=== PATIENT | male | born 1980 | race Caucasian/White ===

== ENCOUNTER 2016-07-09 14:11 | Observation (INO) | payer BC, OTHER ==
[2016-07-09] MEDS ORDERED: Aspirin 81 MG Tab.Chew PO ONE (14:28)
[2016-07-09] MEDS ORDERED: Sodium Chloride 0.9% 1,000 ML IV ONE (14:28)
[2016-07-09] MEDS ORDERED: Diltiazem 25 MG/5 ML SDV IVPUSH ONE (14:30)
[2016-07-09] MEDS ORDERED: Enoxaparin 150 MG/1 ML Syringe SUBCUT ONE (14:31)
[2016-07-09] MEDS ORDERED: Enoxaparin 100 MG/1 ML Syringe ONE (14:36)
[2016-07-09 15:04] LABS: CHLORIDE,CL 114 mmol/L (98-110); SODIUM,NA 144 mmol/L (136-146)
--- NOTE | 2016-07-09 15:05 | EDM.PDOC ---
ED HISTORY OF PRESENT ILLNESS - General Chief Complaint: Cardiovascular Problem Stated Complaint: CHEST ISSUES Time Seen by Provider: 07/09/16 14:25 Source of Information: Reports: Patient, Family History Limitations: Reports: No limitations - History of Present Illness INITIAL COMMENTS - FREE TEXT/NARRATIVE: HISTORY AND PHYSICAL: History of present illness: [Patient comes to the emergency room complaining of heart palpitations. His symptoms began on July 07 with an occasional sensation of his heart thumping irregularly in his chest. This continued through the day yesterday. Today, he woke up feeling fatigued and weak and occasionally dizzy. Has felt some shortness of breath and worsening sensation of palpitations in his chest today. Over the past several months he's had some swelling over his shins. Had a PE June 2015 following a knee surgery. Took Xarelto for just less than one year. 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 He has no other complaints or concerns today.] Review of systems: As per history of present illness and below otherwise all systems reviewed and negative. Past medical history: As per history of present illness and as reviewed below otherwise noncontributory. Surgical history: As per history of present illness and as reviewed below otherwise noncontributory. Social history: No reported history of drug or alcohol abuse. Family history: As per history of present illness and as reviewed below otherwise noncontributory. Physical exam: HEENT: Atraumatic, normocephalic. negative for conjunctival pallor or scleral icterus. mucous membranes moist, throat clear. neck supple, nontender, no lymphadenopathy. Lungs: Clear to auscultation, breath sounds equal bilaterally, chest nontender. Heart: S1S2, no S3-S4. Heart is irregularly irregular. . Abdomen: Obese Soft, nondistended, nontender. Negative for masses or hepatosplenomegaly. Pelvis: Stable nontender. Genitourinary: Deferred. Rectal: Deferred. Extremities: Atraumatic, negative for cords or calf pain. No cyanosis or edema. Neurovascular unremarkable. Neuro: Awake, alert, oriented. Motor and sensory unremarkable throughout. Exam nonfocal. Diagnostics: [CBC, CMP, d-dimer, troponin, EKG, chest x-ray, BNP, INR/PT/PTT, UA] Therapeutics: [Lovenox 170 mg subcutaneous, Cardizem 25 mg IV, aspirin 324 mg by mouth] Impression: [New-onset atrial fibrillation] Plan: [Patient's EKG shows atrial fibrillation. This is a new diagnosis for him. His rate is controlled nicely with one dose of Cardizem 25 mg. Discussed case with Dr. Burrell, hospitalist, who agrees to accept patient for observation with telemetry. The patient is notified and is in agreement with today's plan. All questions are answered and concerns are addressed. Definitive disposition and diagnosis as appropriate pending reevaluation and review of above. - Related Data Allergies/ADRs: Allergies Allergy/AdvReac Type Severity Reaction Status Date / Time No Known Allergies Allergy Verified 07/09/16 14:18 Home Meds: Home Meds Losartan [Cozaar] 50 mg PO DAILY 07/09/16 [History] Past Medical History HEENT History: Reports: Sinusitis Cardiovascular History: Reports: Blood clots/VTE/DVT, High cholesterol, Hypertension Other Cardiovascular History: PE in Jun Respiratory History: Reports: Asthma Gastrointestinal History: Reports: None Genitourinary History: Reports: None Neurological History: Reports: None Psychiatric History: Reports: None Endocrine/Metabolic History: Reports: None Hematologic History: Reports: None Immunologic History: Reports: None Oncologic (Cancer) History: Reports: None Dermatologic History: Reports: None - Infectious Disease History Infectious Disease History: Reports: None - Past Surgical History Head Surgeries/Procedures: Reports: None HEENT Surgical History: Reports: Other (see below) Other HEENT Surgeries/Procedures: Sinus surgery Musculoskeletal Surgical History: Reports: Other (see below) Other Musculoskeletal Surgeries/Procedures:: left knee surgery 06/24/15 PCL repair Social & Family History - Family History Cardiac: Reports: Heart murmur, Hypertension, Other (see below) Other Cardiac Family History: irregular hr Oncologic: Reports: Breast - Tobacco Use Smoking Status *Q: Current Every Day Smoker Years of Tobacco use: 13 Packs/Tins Daily: 0.5 Second Hand Smoke Exposure: Yes - Caffeine Use Caffeine Use: Reports: None - Alcohol Use Days Per Week of Alcohol Use: 1 Number of Drinks Per Day: 1 Total Drinks Per Week: 1 - Recreational Drug Use Recreational Drug Use: No - Living Situation & Occupation Living situation: Reports: Occupation: employed ED ROS GENERAL - Review of Systems Review Of Systems: ROS reveals no pertinent complaints other than HPI. ED EXAM, GENERAL - Physical Exam Exam: See Below Course - Vital Signs Last Recorded V/S: Last Vital Signs Temp 97.8 F 07/09/16 15:33 Pulse 114 H 07/09/16 15:55 Resp 20 07/09/16 15:33 BP 120/80 07/09/16 15:55 Pulse Ox 94 L 07/09/16 15:33 - Orders/Labs/Meds Orders: Active Orders 24 hr Category Date Time Status Patient Status [ADT] Routine ADT 07/09/16 15:12 Active Antiembolic Devices [RC] Q4H Care 07/09/16 15:16 Active Oxygen Therapy [RC] PRN Care 07/09/16 15:12 Active Pulse Oximetry [RC] PRN Care 07/09/16 15:14 Active RT Aerosol Therapy [RC] ASDIRECTED Care 07/09/16 15:16 Active Up ad [place] [RC] ASDIRECTED Care 07/09/16 15:12 Active Vital Signs [RC] Q4H Care 07/09/16 15:12 Active 2 Gram Sodium Diet [DIET] Diet 07/09/16 Dinner Active Chest 2V [CR] Stat Exams 07/09/16 14:28 Taken Echo Comp wo Cont [US] Stat Exams 07/09/16 15:16 Ordered BASIC METABOLIC PANEL,BMP [CHEM] AM Lab 07/10/16 05:11 Ordered BASIC METABOLIC PANEL,BMP [CHEM] AM Lab 07/11/16 05:11 Ordered BASIC METABOLIC PANEL,BMP [CHEM] AM Lab 07/12/16 05:11 Ordered CBC WITH AUTO DIFF [HEME] AM Lab 07/10/16 05:11 Ordered CBC WITH AUTO DIFF [HEME] AM Lab 07/11/16 05:11 Ordered CBC WITH AUTO DIFF [HEME] AM Lab 07/12/16 05:11 Ordered UA W/MICROSCOPIC [URIN] Stat Lab 07/09/16 14:28 Uncollected Albuterol [Proventil Neb Soln] Med 07/09/16 15:12 Active 2.5 mg NEB Q2H PRN Diltiazem [Cardizem CD] Med 07/09/16 15:19 Active 120 mg PO DAILY Losartan [Cozaar] Med 07/10/16 09:00 Active 50 mg PO DAILY Sodium Chloride 0.9% [Saline Flush] Med 07/09/16 15:12 Active 10 ml FLUSH ASDIRECTED PRN Sodium Chloride 0.9% [Saline Flush] Med 07/09/16 15:12 Active 2.5 ml FLUSH ASDIRECTED PRN Peripheral IV Insertion Adult [OM.PC] Routine Oth 07/09/16 15:12 Ordered Sequential Compression Device [OM.PC] Per Unit Routine Oth 07/09/16 15:14 Ordered Resuscitation Status Routine Resus Stat 07/09/16 15:12 Ordered Medication Orders Albuterol (Proventil Neb Soln) 2.5 mg NEB Q2H PRN PRN Reason: Shortness Of Breath/wheezing Apixaban (Eliquis) 5 mg PO Q12H DARSHAN Diltiazem HCl (Cardizem Cd) 120 mg PO DAILY DARSHAN Last Admin: 07/09/16 15:55 Dose: 120 mg Losartan Potassium (Cozaar) 50 mg PO DAILY DARSHAN Nitroglycerin (Nitro-Bid 2%) 1 gm TOP Q6H PRN PRN Reason: Chest Pain Sodium Chloride (Saline Flush) 10 ml FLUSH ASDIRECTED PRN PRN Reason: Keep Vein Open Sodium Chloride (Saline Flush) 2.5 ml FLUSH ASDIRECTED PRN PRN Reason: Keep Vein Open Labs: Laboratory Tests 07/09/16 07/09/16 07/09/16 Range/Units 14:25 14:25 14:25 WBC 7.25 (4.0-11.0) K/uL RBC 4.95 (4.50-5.90) M/uL Hgb 15.2 (13.0-17.0) g/dL Hct 43.9 (38.0-50.0) % MCV 88.7 (80.0-98.0) fL MCH 30.7 (27.0-32.0) pg MCHC 34.6 (31.0-37.0) g/dL RDW Std Deviation 42.7 (28.0-62.0) fl RDW Coeff of Ap 13 (11.0-15.0) % Plt Count 221 (150-400) K/uL MPV 10.10 (7.40-12.00) fL Neut % (Auto) 59.9 (48.0-80.0) % Lymph % (Auto) 28.6 (16.0-40.0) % Marathon % (Auto) 8.3 (0.0-15.0) % Eos % (Auto) 2.8 (0.0-7.0) % Baso % (Auto) 0.4 (0.0-1.5) % Neut # 4.4 (1.4-5.7) K/uL Lymph # 2.1 (0.6-2.4) K/uL Marathon # 0.6 (0.0-0.8) K/uL Eos # 0.2 (0.0-0.7) K/uL Baso # 0.0 (0.0-0.1) K/uL Nucleated RBC % 0.0 /100WBC Nucleated RBCs # 0 K/uL INR 1.00 (0.86-1.11) D-Dimer, Quantitative < 0.19 (0.0-0.52) mg/LFEU Sodium 144 (136-146) mmol/L Potassium 3.9 (3.5-5.1) mmol/L Chloride 114 H (98-110) mmol/L Carbon Dioxide 20 L (21-31) mmol/L BUN 14 (6.0-23.0) mg/dL Creatinine 0.9 (0.6-1.5) mg/dL Est Cr Clr Drug Dosing TNP Estimated GFR (MDRD) > 60.0 ml/min Glucose 118 H (60-110) mg/dL Calcium 9.1 (8.8-10.8) mg/dL Total Bilirubin 0.5 (0.1-1.5) mg/dL AST 29 (5-40) IU/L ALT 37 (8-54) IU/L Alkaline Phosphatase 71 (40-150) Troponin I (0.0-0.29) NG/ML B-Natriuretic Peptide (<100) PG/ML Total Protein 7.1 (6.0-8.0) g/dL Albumin 4.2 (3.5-5.0) g/dL Globulin 2.9 (2.0-3.5) g/dL Albumin/Globulin Ratio 1.5 (1.3-2.8) TSH 3rd Generation 0.96 (0.47-5.0) uIU/mL 07/09/16 07/09/16 Range/Units 14:25 14:25 WBC (4.0-11.0) K/uL RBC (4.50-5.90) M/uL Hgb (13.0-17.0) g/dL Hct (38.0-50.0) % MCV (80.0-98.0) fL MCH (27.0-32.0) pg MCHC (31.0-37.0) g/dL RDW Std Deviation (28.0-62.0) fl RDW Coeff of Ap (11.0-15.0) % Plt Count (150-400) K/uL MPV (7.40-12.00) fL Neut % (Auto) (48.0-80.0) % Lymph % (Auto) (16.0-40.0) % Marathon % (Auto) (0.0-15.0) % Eos % (Auto) (0.0-7.0) % Baso % (Auto) (0.0-1.5) % Neut # (1.4-5.7) K/uL Lymph # (0.6-2.4) K/uL Marathon # (0.0-0.8) K/uL Eos # (0.0-0.7) K/uL Baso # (0.0-0.1) K/uL Nucleated RBC % /100WBC Nucleated RBCs # K/uL INR (0.86-1.11) D-Dimer, Quantitative (0.0-0.52) mg/LFEU Sodium (136-146) mmol/L Potassium (3.5-5.1) mmol/L Chloride (98-110) mmol/L Carbon Dioxide (21-31) mmol/L BUN (6.0-23.0) mg/dL Creatinine (0.6-1.5) mg/dL Est Cr Clr Drug Dosing Estimated GFR (MDRD) ml/min Glucose (60-110) mg/dL Calcium (8.8-10.8) mg/dL Total Bilirubin (0.1-1.5) mg/dL AST (5-40) IU/L ALT (8-54) IU/L Alkaline Phosphatase (40-150) Troponin I < 0.10 (0.0-0.29) NG/ML B-Natriuretic Peptide 25 (<100) PG/ML Total Protein (6.0-8.0) g/dL Albumin (3.5-5.0) g/dL Globulin (2.0-3.5) g/dL Albumin/Globulin Ratio (1.3-2.8) TSH 3rd Generation (0.47-5.0) uIU/mL Meds: Medications Generic Name Dose Route Start Last Admin Trade Name Hareshq PRN Reason Stop Dose Admin Albuterol 2.5 mg 07/09/16 15:12 Proventil Neb Soln NEB Q2H PRN Shortness Of Breath/wheezing Apixaban 5 mg 07/10/16 09:00 Eliquis PO Q12H DARSHAN Diltiazem HCl 120 mg 07/09/16 15:19 07/09/16 15:55 Cardizem Cd PO 120 mg DAILY DARSHAN Administration Losartan Potassium 50 mg 07/10/16 09:00 Cozaar PO DAILY DARSHAN Nitroglycerin 1 gm 07/09/16 17:16 Nitro-Bid 2% TOP Q6H PRN Chest Pain Sodium Chloride 10 ml 07/09/16 15:12 Saline Flush FLUSH ASDIRECTED PRN Keep Vein Open Sodium Chloride 2.5 ml 07/09/16 15:12 Saline Flush FLUSH ASDIRECTED PRN Keep Vein Open Discontinued Medications Generic Name Dose Route Start Last Admin Trade Name Hareshq PRN Reason Stop Dose Admin Aspirin 324 mg 07/09/16 14:28 07/09/16 14:38 Aspirin PO 07/09/16 14:29 324 mg ONETIME ONE Administration Diltiazem HCl 25 mg 07/09/16 14:30 07/09/16 14:39 Diltiazem IVPUSH 07/09/16 14:31 25 mg ONETIME ONE Administration Enoxaparin Sodium 170 mg 07/09/16 14:31 07/09/16 14:39 Lovenox SUBCUT 07/09/16 14:32 170 mg ONETIME ONE Administration Enoxaparin Sodium Confirm 07/09/16 14:36 07/09/16 15:27 Lovenox Administered 07/09/16 14:37 Not Given Dose 100 mg .ROUTE .STK-MED ONE Sodium Chloride 1,000 mls @ 999 mls/hr 07/09/16 14:28 07/09/16 14:39 Normal Saline IV 07/09/16 15:28 999 mls/hr .Bolus ONE Administration Departure - Departure Time of Disposition: 15:55 Disposition: Admitted As Inpatient 64 Clinical Impression: Atrial fibrillation Qualifiers: Atrial fibrillation type: unspecified Qualified Code(s): I48.91 - Unspecified atrial fibrillation - My Orders Last 24 Hours: My Active Orders 07/09/16 14:28 Chest 2V [CR] Stat UA W/MICROSCOPIC [URIN] Stat - Assessment/Plan Last 24 Hours: My Active Orders 07/09/16 14:28 Chest 2V [CR] Stat UA W/MICROSCOPIC [URIN] Stat
[2016-07-09] MEDS ORDERED: Sodium Chloride 0.9% 2.5 ML Syringe FLUSH PRN (15:12)
[2016-07-09] MEDS ORDERED: Albuterol 0.083% 2.5 MG/3 ML Neb Soln NEB PRN (15:12)
[2016-07-09] MEDS ORDERED: Sodium Chloride 0.9% 10 ML Syringe FLUSH PRN (15:12)
[2016-07-09] MEDS: Diltiazem 120 MG Cap.CD PO SCH (15:55)
[2016-07-09] MEDS ORDERED: Nitroglycerin 2% Oint 1 GM UD Packet TOP PRN (17:16)
--- NOTE | 2016-07-09 17:50 | PCM.SN ---
- Free Text/Narrative Note: [id number], HP
[2016-07-09] MEDS ORDERED: Diltiazem 25 MG/5 ML SDV IVPUSH PRN (19:40)
--- NOTE | 2016-07-09 23:51 | HP ---
DATE OF : 1980 PRIMARY CARE PHYSICIAN: None PCP HISTORY OF PRESENT ILLNESS: The patient is a 35-year-old man with past medical history of morbid obesity and pulmonary embolism one year ago, presented to the hospital because of chest tightness, palpitations that were intense, and he felt weird and sweating and lightheaded. His symptoms started around 6 a.m. in the morning and he came to the Emergency Department around 2 p.m. He also had chest tightness 5/10 in intensity. Never had a stress test or any cardiology workup. He reports similar symptoms before but they lasted only 4 or 6 sections, symptoms of palpitations. PAST MEDICAL HISTORY: One year ago, patient had knee surgery He developed pulmonary embolism and he was treated with anticoagulation, Xarelto for 1 year. Patient had asthma in childhood. He has hypertension. ALLERGIES: Patient does not have any known drug allergies. PAST SURGICAL HISTORY: He had eyes and sinus surgery when he was a child and left knee surgery. SOCIAL HISTORY: He smokes half pack per day for the past 13 years. No alcohol use. 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 REVIEW OF SYSTEMS: A 12-point review of systems is negative except as in the history of present illness. DIAGNOSTIC IMAGING: In the Emergency Department, patient had EKG which showed heart rate of 136, atrial fibrillation with ventricular rate between 79 and 169, left anterior vesicular block, low voltage extremity leads, abnormal R-wave progression, late transition, baseline wander in lead V1. QRS 95, QT 314, QTC 479. Chest x-ray was negative for acute disease. LABORATORY DATA: At admission, WBC 7.25, hemoglobin 15.2, hematocrit 43.9, and platelets 221. INR 1. D-dimer less than 0.19. Sodium 144, potassium 3.9, chloride 114, CO2 20, BUN 14, creatinine 0.9. GFR more than 60. Glucose 118, calcium 9.1. Total bilirubin 0.5, AST 29, ALT 27, alkaline phosphatase 71. Troponin at 2:30 p.m. was less than 0.1. BNP 25. Total protein 7.1. Albumin 4.2, globulin 2.9. TSH 0.96. PHYSICAL EXAMINATION: VITAL SIGNS: At admission, temperature 96.9, pulse 142, blood pressure 155/85, respiratory rate 18, pulse oximetry 97% on 2 L oxygen nasal cannula. HEENT: Head is atraumatic and normocephalic. Pupils are equal and reactive to light. NECK: Supple. No thyromegaly. No lymphadenopathy. HEART: S1 and S2. Irregular rhythm and rate, tachycardic. No murmurs. LUNGS: Clear to auscultation bilateral. ABDOMEN: Soft and nontender. Positive bowel sounds. EXTREMITIES: No edema. EMERGENCY DEPARTMENT COURSE: In the ER, patient received 25 mg of diltiazem, Cardizem IV push and his heart rate slowed down to 107. ASSESSMENT: 1. Patient was admitted medical telemetry with new onset atrial fibrillation with rapid ventricular rate. 2. Chest tightness, rule out acute coronary syndrome. 3. Hypertension u/c. PLAN: For atrial fibrillation with rapid ventricular rate, patient was given Cardizem 120 mg extended release p.o. and will follow up telemetry and we will give patient Cardizem 10 mg daily p.r.n. for heart rate more than 100. Patient is to follow up with Cardiology tomorrow. We will also order cardiac echo and in the emergency room, patient received Lovenox 1 mg per kg and will continue patient with Eliquis 5 mg po BID For chest tightness, rule out acute coronary syndrome, we will order serial cardiac troponins. Patient received in the ER, aspirin 324 mg p.o. 1 dose, we will follow up lipid profile, hemoglobin A1c. We will give patient nitro paste. For hypertension, we will continue patient with losartan 50 mg p.o. daily and will follow blood pressure. RAULITO / SAUL /[id number] MTDGenna
[2016-07-10 03:12] LABS: CHLORIDE,CL 112 mmol/L (98-110); SODIUM,NA 141 mmol/L (136-146)
[2016-07-10] MEDS ORDERED: Apixaban 5 MG Tab PO SCH (09:00)
[2016-07-10] MEDS ORDERED: Losartan 50 MG Tab PO SCH (09:00)
[2016-07-10] MEDS: Diltiazem 120 MG Cap.CD PO SCH (10:58)
[2016-07-10] MEDS ORDERED: atorvaSTATin 40 MG Tab PO SCH (11:51)
[2016-07-10] MEDS ORDERED: Diltiazem 120 MG Cap.CD PO ONE ×2 (12:26→13:35)
[2016-07-10] MEDS ORDERED: Aspirin 81 MG Tab.Chew PO SCH (13:30)
[2016-07-10 13:54] VITALS: BP 106/64
--- NOTE | 2016-07-10 18:31 | CR ---
EXAM DATE: 07/09/16 PATIENT'S AGE: 35 Patient: SALEEM LLAMAS Facility: [place], [place] Site . Site : 1980 Study: XRay Chest [id number] 3:03:23 PM Ordering Physician: Doctor Augustine Final Report: INDICATION: Chest pain. Technique: Two view chest. Findings: The heart and mediastinum are normal in size and configuration. The pulmonary vessels are normal. The lungs are clear. No pleural fluid. No acute bony abnormalities. Impression: Normal chest. Dictated by Ely Watters MD @ Jul 09 2016 3:11PM (Electronic Signature) Report Signed by Proxy and Original Signed Document filed in the Medical Record. MTDD
[2016-07-11] MEDS ORDERED: Diltiazem 120 MG Cap.CD PO ONE (12:26)
--- NOTE | 2016-07-11 19:03 | PCM.SN ---
- Free Text/Narrative Note: [id number]
--- NOTE | 2016-07-13 00:42 | DISCH ---
DATE OF DISCHARGE: 07/10/2016 PRIMARY CARE PHYSICIAN: None PCP HISTORY OF PRESENT ILLNESS: The patient was admitted in the hospital on July 09, 2016 because at 6 o'clock in the morning, he started having palpitation and chest tightness and this lasted until 2:00 p.m. when he arrived in the emergency room. Chest tightness is described as 5/10 in intensity. The patient never had a stress test or any cardiology workup. He reports to me no symptoms before, but they lasted only for 4 or 6 seconds and he reports chest palpitation before for 4-6 seconds. In the emergency room, he was found to have a heart rate around 150. HOSPITAL COURSE: Patient in the emergency room, he was given diltiazem 25 mg IV and his heart rate decreased to 107. The patient was admitted to medical telemetry and he was given in the emergency room, Lovenox 1 mg/kg and he was continued in the morning with Eliquis 5 mg p.o. b.i.d. On the floor, the patient was given diltiazem 120 and his heart rate was around 86-90 at rest and with activities, it went up to 120. Next day, patient had cardiac echo, he had serial troponins that were negative. He remained in atrial fibrillation during his hospital stay and lipid profile showed he had hypertriglyceridemia at 377, cholesterol 259, LDL 162, VLDL 75, HDL 22, and the patient was given atorvastatin 40 mg p.o. daily. I have discussed with the customer care coordinator his case and he recommended patient to follow up with him as outpatient, no other medication needed. The patient was discharged home with diltiazem 180 mg p.o. daily and atorvastatin 40 mg p.o. at bedtime and also diltiazem 30 mg p.o. b.i.d. p.r.n. for heart rate more than 100, hold if systolic blood pressure less than 90, also he was given aspirin 81 mg p.o. daily and the patient to follow up cardiac echo as an outpatient. His D-dimer at admission was negative, it was less than 0.19 and his INR was 1. DIAGNOSES AT DISCHARGE: Hyperlipidemia, new onset of atrial fibrillation, chest tightness, rule out ACS and essential hypertension. The patient was also given a followup appointment with his primary care physician. DISCHARGE ACTIVITIES: As tolerated. DIET: Weight loss diet and low-fat diet. The patient may drive today and may shower, also patient has morbid obesity. His BMI is 42. Possible cause of his new onset AFib could be sleep apnea. The patient was advised to have sleep study as outpatient. PHYSICAL EXAM: HEENT: Head atraumatic, normocephalic. Pupils equal, reactive to light. NECK: Supple. No thyromegaly. No lymphadenopathy. HEART: S1, S2. Irregular rate and rhythm, no murmurs. LUNGS: Clear to auscultation bilaterally. ABDOMEN: Soft, nontender, positive bowel sounds. EXTREMITIES: No edema. ANTPHILLIPT / SAUL /[id number] DELORES
--- NOTE | 2016-07-21 22:55 | ECHO ---
The echocardiogram report can be seen in this patient's EMR in the Reports section. DELORES
== END 2016-07-10 15:19 | disposition home or self-care (01) ==
LOC: MW.ED 14:11 → MW.ICU 15:10 → UNDOADMOB 15:27
PROVIDERS: ADMIT Internal Medicine; ATTEND Internal Medicine
DX: I48.91 Unspecified atrial fibrillation (principal); E78.5 Hyperlipidemia, unspecified; I10 Essential (primary) hypertension; R07.89 Other chest pain; J45.909 Unspecified asthma, uncomplicated; F17.210 Nicotine dependence, cigarettes, uncomplicated; Z86.711 Personal history of pulmonary embolism; Z98.890 Other specified postprocedural states
CPT/HCPCS: 36415; 71020; 80048; 80053; 80061; 81001; 83036; 83880; 84443; 84484; 85025; 85379; 85610; 93005; 93306; 96361; 96372; 96374; 97802; 99285; A9270; G0378; J1650; J7040; J3490

== ENCOUNTER → 2016-07-26 | Outpatient (CLI) | payer BC | LOC: MW.CHIM 07-17 14:14 | PROVIDERS: ATTEND Internal Medicine | DX: I48.91 Unspecified atrial fibrillation (principal) | CPT/HCPCS: 93005 ==

== ENCOUNTER → 2016-08-30 | Outpatient (CLI) | payer BC, OTHER ==
[2016-08-30 09:21] LABS: CHLORIDE,CL 111 mmol/L (98-110); SODIUM,NA 141 mmol/L (136-146)
== END ==
LOC: MW.CHIM 08:31
PROVIDERS: ATTEND Internal Medicine
DX: I48.91 Unspecified atrial fibrillation (principal); E78.5 Hyperlipidemia, unspecified
CPT/HCPCS: 36415; 80053; 80061; 82550

== ENCOUNTER 2019-05-12 16:52 | Emergency (ER) | payer BC, OTHER ==
--- NOTE | 2019-05-12 17:44 | EDM.PDOC ---
ED HPI GENERAL MEDICAL PROBLEM - General Chief Complaint: Chest Pain Stated Complaint: CHEST PAINS Time Seen by Provider: 05/12/19 17:42 Source of Information: Reports: Patient History Limitations: Reports: No Limitations - History of Present Illness INITIAL COMMENTS - FREE TEXT/NARRATIVE: Patient is a 38-year-old male with a past medical history of pulmonary embolism and atrial fibrillation presenting with a chief complaint of palpitations x1/2 weeks. Patient states his symptoms are intermittent and not precipitated by any particular thing. Symptoms last for several hours at a time and resolve spontaneously. Patient does endorse subjective feelings of shortness of breath. Patient denies any syncopal episode, recent illness, recent travel, recent surgery. Patient states that his prior pulmonary embolism was diagnosed after he had major surgery on his lower extremity. Patient has not noticed any swelling in his legs or calf pain. Patient is on daily aspirin but no other sources of anticoagulation. In addition to that documented in the HPI above, the additional ROS was obtained : Constitutional: Denies fevers or chills Eyes: Denies vision changes ENMT: Denies sore throat CV: Per HPI Resp: Per HPI GI: Denies vomiting or diarrhea : Denies painful urination MSK: Denies recent trauma Skin: Denies new rashes Neuro: Denies new numbness or tingling or weakness Endocrine: Denies unexpected weight loss Heme: Denies bleeding disorders I have reviewed the triage vital signs Const: Well nourished, well developed, appears stated age Eyes: PERRL, no conjunctival injection HENT: NCAT, Neck supple without meningismus CV: RRR, Warm, well-perfused extremities RESP: CTAB, Unlabored respiratory effort GI: soft, non-tender, non-distended, no masses MSK: No gross deformities appreciated Skin: Warm, dry. No rashes Neuro: Alert, proofsheet corrector II-XII grossly intact. Sensation and motor function of extremities grossly intact. Psych: Appropriate mood and affect Assessment and plan Patient is a 38-year-old male with chief complaint of palpitations and chest discomfort. Patient's EKG does not demonstrate any evidence of ischemic changes. Troponin and d-dimer are negative. Patient heart score is 2 does not require any further work-up at this time. Pulmonary embolism was considered however with negative d-dimer and low risk, this can be excluded. Patient's x- ray chest x-ray is within normal limits does not demonstrate any evidence of pneumothorax or infection. Patient given strict return precautions and instructed to follow-up as an outpatient with family medicine clinic. - Related Data Allergies Allergy/AdvReac Type Severity Reaction Status Date / Time No Known Allergies Allergy Verified 05/12/19 16:56 Home Meds: Home Meds Losartan [Cozaar] 50 mg PO DAILY 07/09/16 [History] Aspirin 81 mg PO DAILY #10 tab.chew 07/10/16 [Rx] Metoprolol Succinate [Kapspargo Sprinkle] 25 mg PO ASDIRECTED 05/12/19 [History] hydroCHLOROthiazide [Hydrochlorothiazide] 12.5 mg PO DAILY 05/12/19 [History] Past Medical History HEENT History: Reports: Sinusitis Cardiovascular History: Reports: Afib, Blood Clots/VTE/DVT, High Cholesterol, Hypertension Other Cardiovascular History: PE in Jun Respiratory History: Reports: Asthma Gastrointestinal History: Reports: None Genitourinary History: Reports: None Musculoskeletal History: Reports: Fracture Neurological History: Reports: None Psychiatric History: Reports: None Endocrine/Metabolic History: Reports: None Hematologic History: Reports: None Immunologic History: Reports: None Oncologic (Cancer) History: Reports: None Dermatologic History: Reports: None - Infectious Disease History Infectious Disease History: Reports: None - Past Surgical History Head Surgeries/Procedures: Reports: None HEENT Surgical History: Reports: Other (See Below) Musculoskeletal Surgical History: Reports: Other (See Below) Social & Family History - Family History HEENT: Reports: Impaired Vision Cardiac: Reports: Heart Murmur, Hypertension, Other (See Below) Other Cardiac Family History: irregular hr GI: Reports: Diverticulosis OBGYN: Reports: Oncologic: Reports: Breast - Tobacco Use Smoking Status *Q: Former Smoker Years of Tobacco use: 15 Packs/Tins Daily: 1 Used Tobacco, but Quit: Yes Month/Year Tobacco Last Used: 2year - Caffeine Use Caffeine Use: Reports: Coffee - Recreational Drug Use Recreational Drug Use: No - Living Situation & Occupation Living situation: Reports: Occupation: Employed ED ROS GENERAL - Review of Systems Review Of Systems: See Below ED EXAM, GENERAL - Physical Exam Exam: See Below Course - Vital Signs Last Recorded V/S: Last Vital Signs Temp 36.6 C 05/12/19 17:01 Pulse 83 05/12/19 17:01 Resp 16 05/12/19 17:01 BP 186/77 H 05/12/19 17:01 Pulse Ox 95 05/12/19 17:01 - Orders/Labs/Meds Orders: Active Orders 24 hr Category Date Time Status EKG 12 Lead [EKG Documentation Completion] [RC] STAT Care 05/12/19 17:01 Active Labs: Laboratory Tests 05/12/19 05/12/19 05/12/19 Range/Units 17:00 17:00 17:00 WBC 8.58 (4.0-11.0) K/uL RBC 5.06 (4.50-5.90) M/uL Hgb 15.8 (13.0-17.0) g/dL Hct 45.3 (38.0-50.0) % MCV 89.5 (80.0-98.0) fL MCH 31.2 (27.0-32.0) pg MCHC 34.9 (31.0-37.0) g/dL RDW Std Deviation 41.6 (28.0-62.0) fl RDW Coeff of Ap 13 (11.0-15.0) % Plt Count 254 (150-400) K/uL MPV 10.30 (7.40-12.00) fL Neut % (Auto) 60.4 (48.0-80.0) % Lymph % (Auto) 29.0 (16.0-40.0) % [place] % (Auto) 8.0 (0.0-15.0) % Eos % (Auto) 2.3 (0.0-7.0) % Baso % (Auto) 0.3 (0.0-1.5) % Neut # (Auto) 5.2 (1.4-5.7) K/uL Lymph # (Auto) 2.5 H (0.6-2.4) K/uL [place] # (Auto) 0.7 (0.0-0.8) K/uL Eos # (Auto) 0.2 (0.0-0.7) K/uL Baso # (Auto) 0.0 (0.0-0.1) K/uL Nucleated RBC % 0.0 /100WBC Nucleated RBCs # 0 K/uL D-Dimer, Quantitative < 0.19 (0.0-0.50) mg/L FEU Sodium 140 (136-148) mmol/L Potassium 3.8 (3.5-5.1) mmol/L Chloride 101 (98-107) mmol/L Carbon Dioxide 29.3 (21.0-32.0) mmol/L BUN 14 (7.0-18.0) mg/dL Creatinine 0.9 (0.8-1.3) mg/dL Est Cr Clr Drug Dosing 144.60 mL/min Estimated GFR (MDRD) > 60.0 ml/min Glucose 93 (74-106) mg/dL Calcium 9.4 (8.5-10.1) mg/dL Total Bilirubin 0.2 (0.2-1.0) mg/dL AST 21 (15-37) IU/L ALT 49 (14-63) IU/L Alkaline Phosphatase 88 (46-116) U/L Troponin I < 0.050 (0.000-0.056) ng/mL Total Protein 7.7 (6.4-8.2) g/dL Albumin 4.2 (3.4-5.0) g/dL Globulin 3.5 (2.6-4.0) g/dL Albumin/Globulin Ratio 1.2 (0.9-1.6) Departure - Departure Time of Disposition: 18:24 Disposition: Home, Self-Care 01 Clinical Impression: Atypical chest pain Instructions: Nonspecific Chest Pain Referrals: PCP,Unobtain [Primary Care Provider] - Forms: ED Department Discharge Sepsis Event Note - Evaluation Sepsis Screening Result: No Definite Risk - Focused Exam Vital Signs: Vital Signs Temp Pulse Resp BP Pulse Ox 05/12/19 17:01 36.6 C 83 16 186/77 H 95 Date Exam was Performed: 05/12/19 Time Exam was Performed: 18:22 - My Orders Last 24 Hours: My Active Orders 05/12/19 17:01 EKG 12 Lead [EKG Documentation Completion] [RC] STAT - Assessment/Plan Last 24 Hours: My Active Orders 05/12/19 17:01 EKG 12 Lead [EKG Documentation Completion] [RC] STAT
[2019-05-12 17:47] LABS: BLOOD UREA NITROGEN,BUN 14 mg/dL (7.0-18.0); CARBON DIOXIDE,CO2 29.3 mmol/L (21.0-32.0); CHLORIDE,CL 101 mmol/L (98-107); GLUCOSE RANDOM 93 mg/dL (74-106); POTASSIUM,K 3.8 mmol/L (3.5-5.1); SODIUM,NA 140 mmol/L (136-148)
--- NOTE | 2019-05-12 18:07 | CR ---
Chest: 2 views of the chest were obtained. Comparison: Prior chest x-ray of 07/09/16. Heart size and mediastinum are normal. Lungs are clear. Bony structures are unremarkable. Impression: 1. Nothing acute is seen on 2 view chest x-ray. Diagnostic code #1 This report was dictated in [place] Standard Time
[2019-05-12 18:39] VITALS: BP 127/77; PULSE 85
== END 2019-05-12 18:36 | disposition home or self-care (01) ==
LOC: MW.ED 16:52
DX: R07.89 Other chest pain (principal); I10 Essential (primary) hypertension; E78.00 Pure hypercholesterolemia, unspecified; Z79.82 Long term (current) use of aspirin; Z79.899 Other long term (current) drug therapy; Z86.718 Personal history of other venous thrombosis and embolism; Z87.891 Personal history of nicotine dependence
CPT/HCPCS: 36415; 71046; 71046-26; 80053; 84484; 85025; 85379; 93005; 99283; 99285-25

== ENCOUNTER 2020-08-16 10:47 | Emergency (ER) | payer OTHER, BC ==
--- NOTE | 2020-08-16 10:51 | EDM.PDOC ---
ED HPI GENERAL MEDICAL PROBLEM - General Chief Complaint: Upper Extremity Injury/Pain Stated Complaint: LFT ARM PAIN Time Seen by Provider: 08/16/20 10:49 Source of Information: Reports: Patient History Limitations: Reports: No Limitations - History of Present Illness INITIAL COMMENTS - FREE TEXT/NARRATIVE: HISTORY AND PHYSICAL: History of present illness: She is a 39-year-old male who presents to the ED today with concern of 5 days of non exertional left shoulder pain that he describes as "feeling like a nerve is pinched "and states this has been constant for 5 days. Patient states that he went to see his primary care provider today at the [facility] and was instructed to come to the emergency room as they were concerned of possible heart etiology of his left shoulder pain. Patient denies any trauma or injury of the shoulder and states that the pain is worse when he tries to move the shoulder, especially over his head. He denies any associated chest pain, nausea, or any other symptoms. Patient states that he has used a TENS unit on the shoulder and states that this has helped the symptoms and relax the muscles. She states that he does feel a grinding sensation in his left shoulder when he moves it which worsens the pain. Patient states he has had a prior history of atrial fibrillation but states that he has not been in atrial fibrillation for a while and also has a history of hypertension, prior PE in 2016, hyperlipidemia. Denies any other symptoms or concerns. Patient denies fever, chills, chest pain, shortness of breath, or cough. Denies headache, neck stiff ness, change in vision, syncope, or near syncope. Denies nausea, vomiting, abdominal pain, diarrhea, constipation, or dysuria. Has not noted any blood in urine or stool. Patient has been eating and drinking appropriately. Review of systems: As per history of present illness and below otherwise all systems reviewed and negative. Past medical history: As per history of present illness and as reviewed below otherwise noncontributory. Surgical history: As per history of present illness and as reviewed below otherwise noncontributory. Social history: See social history for further information Family history: As per history of present illness and as reviewed below otherwise noncontributory. Physical exam: General: Patient is alert, oriented, and in no acute distress. Patient sitting comfortably on exam table. Vitals stable and reviewed by me. HEENT: Atraumatic, normocephalic, pupils equal and reactive bilaterally, negative for conjunctival pallor or scleral icterus, mucous membranes moist, TMs normal bilaterally, throat clear, neck supple, nontender, trachea midline. No drooling or trismus noted. No meningeal signs. No hot potato voice noted. Lungs: Clear to auscultation, breath sounds equal bilaterally, chest nontender. Heart: S1S2, regular rate and rhythm without overt murmur Abdomen: Soft, nondistended, nontender. Negative for masses or hepatosplenomegaly. Negative for costovertebral tenderness. Pelvis: Stable nontender. Genitourinary: Deferred. Rectal: Deferred. Skin: Intact, warm, dry. No lesions or rashes noted. Extremities: Patient has full range of motion of bilateral upper extremities but does have pain of the left shoulder with ROM. Lateral radial pulses are grossly intact with capillary refill less than 2 seconds. No obvious deformity of the l eft upper extremity, no erythema or edema left upper extremity. Otherwise, atraumatic, negative for cords or calf pain. Neurovascular unremarkable. Neuro: Awake, alert, oriented. Cranial nerves II through XII unremarkable. Cerebellum unremarkable. Motor and sensory unremarkable throughout. Exam nonfocal. Notes: On initial exam, patient is vitally stable and well-appearing. Nontoxic nonfocal. Patient does have recreation of his symptoms with range of motion of his left shoulder. HEART Score 2-Low risk. Will obtain basic lab work and cardiac evaluation. Being that patient has had symptoms consistently for 5 days, would suspect troponin to be elevated today in the event of ACS. See Dr. Loo's dictation for specific EKG interpretation. However, no STEMI or acute changes. Normal sinus rhythm. Labwork is unremarkable. Chest x-ray shows no acute cardiopulmonary findings. Troponin is negative today. Shoulder LT XR shows no fractures or bone lesions. Mild arthritic changes in the AC joint with minimal spurring. Glenohumeral joint and subacromial spaces are not well visualized. No other specific findings. Upon reevaluation of patient, he remains vitally stable and comfortable t hroughout stay in ED. Discussed importance for follow-up with his primary care provider in the orthopedic provider. Signs symptoms that were prompt return to the ED thoroughly discussed with patient. Voices understanding and is agreeable to plan of care. Denies any further questions or concerns at this time. Diagnostics: EKG, CBC, CMP, CXR, Trop, LT Shoulder XR Therapeutics: None Prescription: None Impression: Left shoulder pain Plan: 1. Rest, ice, elevate the affected extremity. You can apply ice 15 minutes on, 15 minutes off. 2. Tylenol and/or Ibuprofen as directed for pain management or discomfort. 3. Follow up with the Orthopedic provider / primary care provider as discussed. Return to the ED as needed and as discussed. Definitive disposition and diagnosis as appropriate pending reevaluation and review of above. left shoulder/arm Pain Score (Numeric/FACES): 4 - Related Data Allergies Allergy/AdvReac Type Severity Reaction Status Date / Time No Known Allergies Allergy Verified 08/16/20 11:07 Home Meds: Home Meds Losartan [Cozaar] 50 mg PO BID 07/09/16 [History] Aspirin 81 mg PO DAILY #10 tab.chew 07/10/16 [Rx] Metoprolol Succinate [Kapspargo Sprinkle] 25 mg PO ASDIRECTED 05/12/19 [History] hydroCHLOROthiazide [Hydrochlorothiazide] 12.5 mg PO DAILY 05/12/19 [History] Past Medical History HEENT History: Reports: Sinusitis Cardiovascular History: Reports: Afib, Blood Clots/VTE/DVT, High Cholesterol, Hypertension Other Cardiovascular History: PE in Jun Respiratory History: Reports: Asthma Gastrointestinal History: Reports: None Genitourinary History: Reports: None Musculoskeletal History: Reports: Fracture Neurological History: Reports: None Psychiatric History: Reports: None Endocrine/Metabolic History: Reports: None Hematologic History: Reports: None Immunologic History: Reports: None Oncologic (Cancer) History: Reports: None Dermatologic History: Reports: None - Infectious Disease History Infectious Disease History: Reports: None - Past Surgical History Head Surgeries/Procedures: Reports: None HEENT Surgical History: Reports: Other (See Below) Musculoskeletal Surgical History: Reports: Other (See Below) Social & Family History - Family History HEENT: Reports: Impaired Vision Cardiac: Reports: Heart Murmur, Hypertension, Other (See Below) Other Cardiac Family History: irregular hr GI: Reports: Diverticulosis OBGYN: Reports: Oncologic: Reports: Breast - Caffeine Use Caffeine Use: Reports: Coffee - Living Situation & Occupation Living situation: Reports: Occupation: Employed Review of Systems - Review of Systems Review Of Systems: Comprehensive ROS is negative, except as noted in HPI. ED EXAM, GENERAL - Physical Exam Exam: See Below (see dictation) Course - Vital Signs Last Recorded V/S: Last Vital Signs Temp 96.9 F 08/16/20 11:03 Pulse 75 08/16/20 12:30 Resp 18 08/16/20 12:30 BP 142/90 H 08/16/20 12:30 Pulse Ox 98 08/16/20 12:30 - Orders/Labs/Meds Orders: Active Orders 24 hr Category Date Time Status EKG Documentation Completion [RC] STAT Care 08/16/20 11:04 Active Labs: Laboratory Tests 08/16/20 08/16/20 Range/Units 10:58 10:58 WBC 8.42 (4.0-11.0) K/uL RBC 5.11 (4.50-5.90) M/uL Hgb 16.3 (13.0-17.0) g/dL Hct 46.7 (38.0-50.0) % MCV 91.4 (80.0-98.0) fL MCH 31.9 (27.0-32.0) pg MCHC 34.9 (31.0-37.0) g/dL RDW Std Deviation 43.1 (28.0-62.0) fl RDW Coeff of Ap 13 (11.0-15.0) % Plt Count 242 (150-400) K/uL MPV 10.80 (7.40-12.00) fL Neut % (Auto) 64.0 (48.0-80.0) % Lymph % (Auto) 27.1 (16.0-40.0) % [place] % (Auto) 5.7 (0.0-15.0) % Eos % (Auto) 2.7 (0.0-7.0) % Baso % (Auto) 0.5 (0.0-1.5) % Neut # (Auto) 5.4 (1.4-5.7) K/uL Lymph # (Auto) 2.3 (0.6-2.4) K/uL [place] # (Auto) 0.5 (0.0-0.8) K/uL Eos # (Auto) 0.2 (0.0-0.7) K/uL Baso # (Auto) 0.0 (0.0-0.1) K/uL Nucleated RBC % 0.0 /100WBC Nucleated RBCs # 0 K/uL Sodium 142 (136-148) mmol/L Potassium 3.9 (3.5-5.1) mmol/L Chloride 104 (98-107) mmol/L Carbon Dioxide 27.1 (21.0-32.0) mmol/L BUN 16 (7.0-18.0) mg/dL Creatinine 1.0 (0.8-1.3) mg/dL Est Cr Clr Drug Dosing 128.84 mL/min Estimated GFR (MDRD) > 60.0 ml/min Glucose 125 H (74-106) mg/dL Calcium 9.4 (8.5-10.1) mg/dL Total Bilirubin 0.3 (0.2-1.0) mg/dL AST 14 L (15-37) IU/L ALT 40 (14-63) IU/L Alkaline Phosphatase 69 (46-116) U/L Troponin I < 0.050 (0.000-0.056) ng/mL Total Protein 7.7 (6.4-8.2) g/dL Albumin 4.1 (3.4-5.0) g/dL Globulin 3.6 (2.6-4.0) g/dL Albumin/Globulin Ratio 1.1 (0.9-1.6) Departure - Departure Time of Disposition: 12:21 Disposition: Home, Self-Care 01 Clinical Impression: Left shoulder pain Qualifiers: Chronicity: acute Qualified Code(s): M25.512 - Pain in left shoulder - Discharge Information Instructions: Shoulder Pain, [id number] Referrals: Mendez Hathaway NP [Primary Care Provider] - Forms: ED Department Discharge Additional Instructions: The following information is given to patients seen in the emergency department who are being discharged to home. This information is to outline your options for follow-up care. We provide all patients seen in our emergency department with a follow-up referral. The need for follow-up, as well as the timing and circumstances, are variable depending upon the specifics of your emergency department visit. If you don't have a primary care physician on staff, we will provide you with a referral. We always advise you to contact your personal physician following an emergency department visit to inform them of the circumstance of the visit and for follow-up with them and/or the need for any referrals to a consulting specialist. The emergency department will also refer you to a specialist when appropriate. This referral assures that you have the opportunity for follow-up care with a specialist. All of these measure are taken in an effort to provide you with optimal care, which includes your follow-up. Under all circumstances we always encourage you to contact your private physician who remains a resource for coordinating your care. When calling for follow-up care, please make the office aware that this follow-up is from your recent emergency room visit. If for any reason you are refused follow-up, please contact the [facility] Emergency Department at and asked to speak to the emergency department charge nurse. [facility] [address] [place] [id number] [place] [address] 1. Rest, ice, elevate the affected extremity. You can apply ice 15 minutes on, 15 minutes off. 2. Tylenol and/or Ibuprofen as directed for pain management or discomfort. 3. Follow up with the Orthopedic provider / primary care provider as discussed. Return to the ED as needed and as discussed. Sepsis Event Note (ED) - Focused Exam Vital Signs: Vital Signs Temp Pulse Resp BP Pulse Ox 08/16/20 12:30 75 18 142/90 H 98 08/16/20 11:03 96.9 F 74 19 162/87 H 97 - My Orders Last 24 Hours: My Active Orders 08/16/20 11:04 EKG Documentation Completion [RC] STAT - Assessment/Plan Last 24 Hours: My Active Orders 08/16/20 11:04 EKG Documentation Completion [RC] STAT
--- NOTE | 2020-08-16 11:04 | PCM.EKG ---
#1 Interpretation EKG Date: 08/16/20 Time: 10:55 Rhythm: NSR Rate (Beats/Min): 76 ST-T: Normal
[2020-08-16 11:40] LABS: BLOOD UREA NITROGEN,BUN 16 mg/dL (7.0-18.0); CARBON DIOXIDE,CO2 27.1 mmol/L (21.0-32.0); CHLORIDE,CL 104 mmol/L (98-107); GLUCOSE RANDOM 125 mg/dL (74-106); POTASSIUM,K 3.9 mmol/L (3.5-5.1); SODIUM,NA 142 mmol/L (136-148)
--- NOTE | 2020-08-16 12:22 | CR ---
INDICATION: Chest pain TECHNIQUE: Chest 1 views COMPARISON: 05/12/2019 FINDINGS: Cardiovascular and mediastinum: Heart size and vasculature are normal in caliber and appearance. Lungs and pleural spaces: Lungs are clear. No sign of infiltrate or mass. No sign of pleural effusion. No pneumothorax. Bones and soft tissues: No significant findings. IMPRESSION: No acute findings and no significant changes from the prior exam. Dictated by Jamal Jerry MD @ Aug 16 2020 12:19PM Signed by Dr. Jamal Jerry @ Aug 16 2020 12:20PM
--- NOTE | 2020-08-16 12:24 | CR ---
Indication: Shoulder pain Technique: Left shoulder 3 views Comparison: None Findings: Bones: Alignment is normal. No fractures or bone lesions. Joint spaces: Mild arthritic changes in the AC joint with minimal spurring. Glenohumeral joint and subacromial spaces are not well visualized on the submitted images. No other specific finding to explain pain. Soft tissues: Unremarkable. Dictated by Jamal Jerry MD @ Aug 16 2020 12:20PM Signed by Dr. Jamal Jerry @ Aug 16 2020 12:23PM
[2020-08-16 12:31] VITALS: BP 142/90; PULSE 75
== END 2020-08-16 12:39 | disposition home or self-care (01) ==
LOC: MW.ED 10:47
DX: M25.512 Pain in left shoulder (principal); I48.91 Unspecified atrial fibrillation; I10 Essential (primary) hypertension; J45.909 Unspecified asthma, uncomplicated; Z79.82 Long term (current) use of aspirin; Z79.899 Other long term (current) drug therapy
CPT/HCPCS: 71045; 71045-26; 73030-26-LT; 73030-LT; 80053; 84484; 85025; 93005; 93010; 99283; 99284-25

== ENCOUNTER 2021-03-10 09:11 | Emergency (ER) | payer OTHER, BC ==
--- NOTE | 2021-03-10 09:48 | EDM.PDOC ---
ED HPI GENERAL MEDICAL PROBLEM - General Chief Complaint: Abdominal Pain Stated Complaint: ABDOMINAL DISCOMFORT/BELLYBUTTON Time Seen by Provider: 03/10/21 09:24 - History of Present Illness INITIAL COMMENTS - FREE TEXT/NARRATIVE: History of present illness: [] 2 days ago the patient had experienced abdominal pain in the mid epigastrium around the periumbilical area. It is gotten gradually worse. It is fairly sharp and severe. Is not associated with nausea vomiting fever chills. He does not have any change in bowel or bladder habits. The patient does feel some fullness in that area. He started having some discharge today from the umbilicus. Review of systems: As per history of present illness and below otherwise all systems reviewed and negative. Past medical history: As per history of present illness and as reviewed below otherwise noncontributory. Surgical history: As per history of present illness and as reviewed below otherwise noncontributory. Social history: No reported history of drug or alcohol abuse. Family history: As per history of present illness and as reviewed below otherwise noncontributory. Physical exam: Constitutional - well developed, well-nourished and in no acute distress HEENT - normocephalic, no evidence of trauma - external nose and mouth normal - no mass in neck and no JVD - mucosae moist EYES - full EOM, PERRL, no icterus - no evidence of inflammation, injection, or drainage Respiratory - no respiratory distress, equal bilateral expansion, lungs clear to auscultation and no abnormal lung sounds Cardiovascular - Regular Rhythm with S1 and S2 appreciated and no murmur, gallop or rub. GI -there is some bloody discharge in the umbilicus. There is a marble sized mass in the umbilicus that is tender. The rest of the abdomen is not tender. This marble sized mass can be reduced with gentle pressure but there is still tenderness in the area. Abdomen soft without distension or organomegaly - normal bowel sounds - no guard or rebound Musculoskeletal no gross deformity of long bones or joints - no tenderness, swelling or edema Neurologic - Alert and oriented times four - CN II-XII grossly intact - motor sensory and coordination symmetrically normal Psychiatric - appropriate mood and affect with normal thought content Hematologic - No petechiae or purpura - mucosa appropriate color and sclera not pale - normal nail bed color and refill Integument - no rash or evidence of trauma - normal turgor Diagnostics: [] Therapeutics: [] Impression: [] Plan: [] Definitive disposition and diagnosis as appropriate pending reevaluation and review of above. Abdomen Pain Score (Numeric/FACES): 2 - Related Data Allergies Allergy/AdvReac Type Severity Reaction Status Date / Time No Known Allergies Allergy Verified 03/10/21 10:08 Home Meds: Home Meds Losartan [Cozaar] 50 mg PO BID 07/09/16 [History] Aspirin 81 mg PO DAILY #10 tab.chew 07/10/16 [Rx] Metoprolol Succinate [Kapspargo Sprinkle] 25 mg PO ASDIRECTED 05/12/19 [History] hydroCHLOROthiazide [Hydrochlorothiazide] 12.5 mg PO DAILY 05/12/19 [History] cephALEXin [Cephalexin] 500 mg PO BID #14 capsule 03/10/21 [Rx] Past Medical History HEENT History: Reports: Sinusitis Cardiovascular History: Reports: Afib, Blood Clots/VTE/DVT, High Cholesterol, Hypertension Other Cardiovascular History: PE in Jun Respiratory History: Reports: Asthma Gastrointestinal History: Reports: None Genitourinary History: Reports: None Musculoskeletal History: Reports: Fracture Neurological History: Reports: None Psychiatric History: Reports: None Endocrine/Metabolic History: Reports: None Hematologic History: Reports: None Immunologic History: Reports: None Oncologic (Cancer) History: Reports: None Dermatologic History: Reports: None - Infectious Disease History Infectious Disease History: Reports: None - Past Surgical History Head Surgeries/Procedures: Reports: None HEENT Surgical History: Reports: Other (See Below) Other HEENT Surgeries/Procedures: Sinus surgery Cardiovascular Surgical History: Reports: None Musculoskeletal Surgical History: Reports: Other (See Below) Other Musculoskeletal Surgeries/Procedures:: left knee surgery 06/24/15 PCL repair Social & Family History - Family History HEENT: Reports: Impaired Vision Cardiac: Reports: Heart Murmur, Hypertension, Other (See Below) Other Cardiac Family History: irregular hr GI: Reports: Diverticulosis OBGYN: Reports: Oncologic: Reports: Breast - Caffeine Use Caffeine Use: Reports: Energy Drinks - Living Situation & Occupation Living situation: Reports: Occupation: Employed ED ROS GENERAL - Review of Systems Review Of Systems: Comprehensive ROS is negative, except as noted in HPI. ED EXAM, GENERAL - Physical Exam Exam: See Below Free Text/Narrative:: My physical exam is in the HPI Course - Vital Signs Last Recorded V/S: Last Vital Signs Temp 36.2 C 03/10/21 09:30 Pulse 67 03/10/21 11:39 Resp 17 03/10/21 11:39 BP 164/81 H 03/10/21 11:39 Pulse Ox 97 03/10/21 11:39 - Orders/Labs/Meds Orders: Active Orders 24 hr Category Date Time Status Communication Order [RC] STAT Care 03/10/21 09:54 Active Sodium Chloride 0.9% [Saline Flush] Med 03/10/21 09:50 Active 10 ml FLUSH ASDIRECTED PRN Sodium Chloride 0.9% [Saline Flush] Med 03/10/21 09:50 Active 2.5 ml FLUSH ASDIRECTED PRN Saline Lock Insert [OM.PC] Stat Oth 03/10/21 09:50 Ordered Medication Orders Sodium Chloride (Sodium Chloride 0.9% 10 Ml Syringe) 10 ml FLUSH ASDIRECTED PRN PRN Reason: Keep Vein Open Last Admin: 03/10/21 10:09 Dose: 10 ml Documented by: OCTAVIO Sodium Chloride (Sodium Chloride 0.9% 2.5 Ml Syringe) 2.5 ml FLUSH ASDIRECTED PRN PRN Reason: Keep Vein Open Last Admin: 03/10/21 10:09 Dose: 2.5 ml Documented by: OCTAVIO Labs: Laboratory Tests 03/10/21 03/10/21 Range/Units 09:55 09:55 WBC 9.27 (4.0-11.0) K/uL RBC 5.06 (4.50-5.90) M/uL Hgb 15.3 (13.0-17.0) g/dL Hct 45.9 (38.0-50.0) % MCV 90.7 (80.0-98.0) fL MCH 30.2 (27.0-32.0) pg MCHC 33.3 (31.0-37.0) g/dL RDW Std Deviation 42.3 (28.0-62.0) fl RDW Coeff of Ap 13 (11.0-15.0) % Plt Count 219 (150-400) K/uL MPV 10.70 (7.40-12.00) fL Neut % (Auto) 68.6 (48.0-80.0) % Lymph % (Auto) 20.2 (16.0-40.0) % Menard % (Auto) 7.8 (0.0-15.0) % Eos % (Auto) 3.0 (0.0-7.0) % Baso % (Auto) 0.4 (0.0-1.5) % Neut # (Auto) 6.4 H (1.4-5.7) K/uL Lymph # (Auto) 1.9 (0.6-2.4) K/uL Menard # (Auto) 0.7 (0.0-0.8) K/uL Eos # (Auto) 0.3 (0.0-0.7) K/uL Baso # (Auto) 0.0 (0.0-0.1) K/uL Sodium 140 (136-148) mmol/L Potassium 4.2 (3.5-5.1) mmol/L Chloride 106 (98-107) mmol/L Carbon Dioxide 24.1 (21.0-32.0) mmol/L BUN 11 (7.0-18.0) mg/dL Creatinine 0.9 (0.8-1.3) mg/dL Est Cr Clr Drug Dosing 141.71 mL/min Estimated GFR (MDRD) > 60.0 ml/min Glucose 98 (74-106) mg/dL Calcium 9.1 (8.5-10.1) mg/dL Total Bilirubin 0.3 (0.2-1.0) mg/dL AST 12 L (15-37) IU/L ALT 27 (14-63) IU/L Alkaline Phosphatase 63 (46-116) U/L Total Protein 7.2 (6.4-8.2) g/dL Albumin 3.7 (3.4-5.0) g/dL Globulin 3.5 (2.6-4.0) g/dL Albumin/Globulin Ratio 1.1 (0.9-1.6) Lipase 140 (73-393) U/L Meds: Medications Generic Name Dose Route Start Last Admin Trade Name Freq PRN Reason Stop Dose Admin Sodium Chloride 10 ml 03/10/21 09:50 03/10/21 10:09 Sodium Chloride 0.9% 10 Ml Syringe FLUSH 10 ml ASDIRECTED PRN Administration Keep Vein Open Sodium Chloride 2.5 ml 03/10/21 09:50 03/10/21 10:09 Sodium Chloride 0.9% 2.5 Ml Syringe FLUSH 2.5 ml ASDIRECTED PRN Administration Keep Vein Open Discontinued Medications Generic Name Dose Route Start Last Admin Trade Name Hakeem PRN Reason Stop Dose Admin Hydromorphone HCl 1 mg 03/10/21 09:54 03/10/21 10:08 Hydromorphone 2 Mg/Ml Syringe IVPUSH 03/10/21 09:55 1 mg ONETIME ONE Administration Iopamidol 100 ml 03/10/21 11:15 03/10/21 11:15 Iopamidol 755 Mg/Ml 500 Ml Multipack Bottle IVPUSH 03/10/21 11:16 100 ml ONETIME STA Administration Ondansetron HCl 4 mg 03/10/21 09:50 03/10/21 10:08 Ondansetron 4 Mg/2 Ml Sdv IVPUSH 03/10/21 09:51 4 mg ONETIME ONE Administration - Re-Assessments/Exams Free Text/Narrative Re-Assessment/Exam: 03/10/21 12:30 Patient's pain is better. He is essentially nontender and I cannot feel a marble size mass that was there before. There was some drainage from the abdominal wall. I think he had a superficial abscess perhaps from injecting his abdomen over and over and pushing on the area but it has drained externally. The patient most likely had a umbilical hernia that is reduced and reducible. Will be referred to surgery clinic for further evaluation and placed on antibiotic. Departure - Departure Time of Disposition: 12:31 Disposition: Home, Self-Care 01 Condition: Good Clinical Impression: Abdominal pain, Umbilical hernia, Abdominal wall abscess at site of surgical wound - Discharge Information Instructions: Abdominal Pain, Adult, [id number], Umbilical Hernia, Adult Referrals: PCP,None [Primary Care Provider] - Forms: ED Department Discharge Additional Instructions: Take the antibiotic. Do not push up irritate the area. Follow-up with surgical clinic so that you have an option should you get an incarcerated hernia or sooner should this continue to bother you. [facility] - General Surgery Professional Building [address] [place] [address], [address] [place] [address] Your blood pressure is higher than we would like on a day-to-day basis and this may be related to having pain and being in the emergency department. Please follow-up with primary care and have it followed. [facility] - Primary Care [address] [place] [address] [facility] [address] [place] [id number] The following information is given to patients seen in the emergency department who are being discharged to home. This information is to outline your options for follow-up care. We provide all patients seen in our emergency department with a follow-up referral. The need for follow-up, as well as the timing and circumstances, are variable depending upon the specifics of your emergency department visit. If you don't have a primary care physician on staff, we will provide you with a referral. We always advise you to contact your personal physician following an emergency department visit to inform them of the circumstance of the visit and for follow-up with them and/or the need for any referrals to a consulting specialist. The emergency department will also refer you to a specialist when appropriate. This referral assures that you have the opportunity for follow-up care with a specialist. All of these measure are taken in an effort to provide you with optimal care, which includes your follow-up. Under all circumstances we always encourage you to contact your private physician who remains a resource for coordinating your care. When calling for follow-up care, please make the office aware that this follow-up is from your recent emergency room visit. If for any reason you are refused follow-up, please contact the [facility] Emergency Department at and asked to speak to the emergency department charge nurse. Sepsis Event Note (ED) - Focused Exam Vital Signs: Vital Signs Temp Pulse Resp BP Pulse Ox 03/10/21 11:39 67 17 164/81 H 97 03/10/21 09:30 36.2 C 74 18 166/98 H 98 - My Orders Last 24 Hours: My Active Orders 03/10/21 09:50 Sodium Chloride 0.9% [Saline Flush] 10 ml FLUSH ASDIRECTED PRN Sodium Chloride 0.9% [Saline Flush] 2.5 ml FLUSH ASDIRECTED PRN Saline Lock Insert [OM.PC] Stat 03/10/21 09:54 Communication Order [RC] STAT - Assessment/Plan Last 24 Hours: My Active Orders 03/10/21 09:50 Sodium Chloride 0.9% [Saline Flush] 10 ml FLUSH ASDIRECTED PRN Sodium Chloride 0.9% [Saline Flush] 2.5 ml FLUSH ASDIRECTED PRN Saline Lock Insert [OM.PC] Stat 03/10/21 09:54 Communication Order [RC] STAT
[2021-03-10] MEDS ORDERED: Sodium Chloride 0.9% 10 ML Syringe FLUSH PRN (09:50)
[2021-03-10] MEDS ORDERED: Sodium Chloride 0.9% 2.5 ML Syringe FLUSH PRN (09:50)
[2021-03-10] MEDS ORDERED: Ondansetron 4 MG/2 ML SDV IVPUSH ONE (09:50)
[2021-03-10] MEDS ORDERED: HYDROmorphone 2 MG/ML Syringe IVPUSH ONE (09:54)
[2021-03-10 10:31] LABS: BLOOD UREA NITROGEN,BUN 11 mg/dL (7.0-18.0); CARBON DIOXIDE,CO2 24.1 mmol/L (21.0-32.0); CHLORIDE,CL 106 mmol/L (98-107); GLUCOSE RANDOM 98 mg/dL (74-106); LIPASE 140 U/L (73-393); POTASSIUM,K 4.2 mmol/L (3.5-5.1); SODIUM,NA 140 mmol/L (136-148)
--- NOTE | 2021-03-10 11:11 | CR ---
INDICATION: Abdominal pain. TECHNIQUE: Chest 1 view. COMPARISON: Chest radiograph 08/16/2020. FINDINGS: No focal consolidation, pleural effusion, or pneumothorax. Normal heart size and pulmonary vascularity. The bones are unremarkable. IMPRESSION: No acute cardiopulmonary findings. Dictated by Constance Chavez MD @ 03/10/2021 11:10:47 AM (Electronically Signed)
[2021-03-10] MEDS ORDERED: Iopamidol 755 MG/ML 500 ML Multipack Bottle IVPUSH STA (11:15)
[2021-03-10 11:48] VITALS: PULSE 67
--- NOTE | 2021-03-10 12:24 | CT ---
Indication: Abdominal pain Technique: Contrast enhanced axial CT imaging through the abdomen and pelvis. 100 mL Isovue 370 contrast agent was administered intravenously. Sagittal and coronal reconstructions are provided. Comparison: None Findings: No abnormalities are demonstrated relating to the liver, gallbladder, spleen, pancreas, adrenal glands, and kidneys. The portal vein is patent. The abdominal aorta is normal in caliber. There is no abdominal or pelvic lymphadenopathy. The urinary bladder is unremarkable. The stomach and duodenum are unremarkable. There is no small bowel wall thickening or abnormal distention. The appendix is noninflamed. There is no colonic wall thickening or mesenteric edema. Mild degenerative changes are noted in the lower lumbar levels. The included lung bases are clear. Impression: No acute abnormality demonstrated in the abdomen and pelvis. Please note that all CT scans at this facility use dose modulation, iterative reconstruction, and/or weight-based dosing when appropriate to reduce radiation dose to as low as reasonably achievable. Dictated by Gaurav Hunter MD @ 03/10/2021 12:22:59 PM (Electronically Signed)
[2021-03-10 12:50] VITALS: BP 151/76
== END 2021-03-10 12:51 | disposition home or self-care (01) ==
LOC: MW.ED 09:11
DX: K42.9 Umbilical hernia without obstruction or gangrene (principal); L02.211 Cutaneous abscess of abdominal wall; I48.91 Unspecified atrial fibrillation; E78.00 Pure hypercholesterolemia, unspecified; I10 Essential (primary) hypertension; Z79.82 Long term (current) use of aspirin; Z79.899 Other long term (current) drug therapy
CPT/HCPCS: 36415; 71045; 74177; 80053; 83690; 85025; 96374; 96375; 99284; J1170; J2405; Q9967

== ENCOUNTER 2021-07-16 02:27 | Observation (INO) | payer OTHER, BC ==
[2021-07-16] MEDS ORDERED: Sodium Chloride 0.9% 1,000 ML IV ONE (02:46)
[2021-07-16] MEDS ORDERED: Sodium Chloride 0.9% 2.5 ML Syringe FLUSH PRN (02:46)
[2021-07-16] MEDS ORDERED: Sodium Chloride 0.9% 10 ML Syringe FLUSH PRN (02:46)
[2021-07-16] MEDS ORDERED: Metoprolol Tartrate 5 MG in Sodium Chloride 0.9% 50 ML IV ONE ×2 (03:09→04:20)
[2021-07-16] MEDS ORDERED: Metoprolol Tartrate 5 MG/5 ML SDV ONE ×2 (03:22→04:29)
[2021-07-16 03:35] LABS: BLOOD UREA NITROGEN,BUN 21 mg/dL (7.0-18.0); CHLORIDE,CL 104 mmol/L (98-107); ESTIMATED GFR > 60.0 ml/min; GLUCOSE RANDOM 138 mg/dL (74-106); POTASSIUM,K 3.5 mmol/L (3.5-5.1); SODIUM,NA 140 mmol/L (136-148)
[2021-07-16] MEDS ORDERED: Diltiazem 180 MG Cap.CD PO STA (04:20)
[2021-07-16] MEDS ORDERED: Acetaminophen 325 MG Tab PO PRN (09:30)
[2021-07-16] MEDS ORDERED: Metoprolol Succinate 25 MG Tab.ER PO SCH (09:30)
[2021-07-16] MEDS ORDERED: Albuterol/Ipratropium 3.0-0.5 MG/3 ML Neb Soln NEB PRN (10:00)
[2021-07-16] MEDS: Enoxaparin 40 MG/0.4 ML Syringe SUBCUT SCH (10:28)
[2021-07-16] MEDS: Aspirin 81 MG Tab.Chew PO SCH (10:28)
[2021-07-16] MEDS ORDERED: Potassium Chloride 20 MEQ Tab.ER PO ONE (13:26)
[2021-07-17] MEDS ORDERED: Metoprolol Succinate 25 MG Tab.ER PO SCH (09:00)
[2021-07-17] MEDS: Aspirin 81 MG Tab.Chew PO SCH (09:06)
[2021-07-17] MEDS: Enoxaparin 40 MG/0.4 ML Syringe SUBCUT SCH (09:06)
[2021-07-17 12:20] VITALS: BP 123/70; PULSE 70
== END 2021-07-17 14:30 | disposition home or self-care (01) ==
LOC: MW.ED 02:27 → MW.MS 04:22
PROVIDERS: ADMIT Student in an Organized Health Care Education/Training Program; ATTEND Student in an Organized Health Care Education/Training Program
DX: R07.89 Other chest pain (principal); I48.91 Unspecified atrial fibrillation; I25.10 Atherosclerotic heart disease of native coronary artery without angina pectoris; I10 Essential (primary) hypertension; E78.00 Pure hypercholesterolemia, unspecified; F17.210 Nicotine dependence, cigarettes, uncomplicated; J45.909 Unspecified asthma, uncomplicated; Z86.718 Personal history of other venous thrombosis and embolism; Z86.711 Personal history of pulmonary embolism; Z79.82 Long term (current) use of aspirin; Z79.899 Other long term (current) drug therapy; Z20.822 Contact with and (suspected) exposure to COVID-19
CPT/HCPCS: 36415; 71045; 71045-26; 80053; 80307; 83735; 84100; 84443; 84484; 85025; 85610; 93005; 93010; 96365; 96366; 96372; 99217; 99218; 99284; 99285-25; A9270-GY; G0378; J1650; J3490; J7030; U0002

== ENCOUNTER 2021-08-31 07:04 | Emergency (ER) | payer OTHER, BC ==
[2021-08-31] MEDS ORDERED: Ketorolac 30 MG/ML SDV IVPUSH ONE (07:26)
[2021-08-31] MEDS ORDERED: Sodium Chloride 0.9% 2.5 ML Syringe FLUSH PRN (07:26)
[2021-08-31] MEDS ORDERED: Sodium Chloride 0.9% 10 ML Syringe FLUSH PRN (07:26)
[2021-08-31] MEDS ORDERED: Sodium Chloride 0.9% 1,000 ML IV ONE (07:26)
[2021-08-31] MEDS ORDERED: Diphtheria,Pertussis(Acell),Tetanus Vaccine 0.5 ML Syringe IM ONE (07:47)
[2021-08-31] MEDS ORDERED: Octyl 2-Cyanoacrylate 1 Tube TOP ONE (07:47)
[2021-08-31 08:04] LABS: BLOOD UREA NITROGEN,BUN 18 mg/dL (7.0-18.0); CARBON DIOXIDE,CO2 23.7 mmol/L (21.0-32.0); CHLORIDE,CL 106 mmol/L (98-107); GLUCOSE RANDOM 153 mg/dL (74-106); POTASSIUM,K 3.5 mmol/L (3.5-5.1); SODIUM,NA 142 mmol/L (136-148)
[2021-08-31 09:22] VITALS: BP 126/75; PULSE 88
== END 2021-08-31 10:10 ==
LOC: MW.ED 07:04
DX: T59.7X1A Toxic effect of carbon dioxide, accidental (unintentional), initial encounter (principal); S01.81XA Laceration without foreign body of other part of head, initial encounter; R55 Syncope and collapse; I10 Essential (primary) hypertension; I48.91 Unspecified atrial fibrillation; Z79.82 Long term (current) use of aspirin; Z23 Encounter for immunization; Z79.899 Other long term (current) drug therapy; W19.XXXA Unspecified fall, initial encounter
CPT/HCPCS: 12011; 36415; 36600; 70450; 71045; 80053; 80307; 82375; 82803; 83735; 84484; 85025; 90471; 90715; 93005; 96374; 99285; A9270; J1885; J3490; J7030; 99283

== ENCOUNTER 2022-02-09 19:50 | Emergency (ER) | payer OTHER, BC ==
[2022-02-09] MEDS ORDERED: Cephalexin 500 MG Cap PO ONE (21:00)
== END 2022-02-09 23:05 | disposition home or self-care (01) ==
LOC: MW.ED 19:50
DX: L03.115 Cellulitis of right lower limb (principal)
CPT/HCPCS: 99283; A9270; 99282

== ENCOUNTER 2022-04-08 18:34 | Emergency (ER) | payer OTHER, BC ==
[2022-04-08] MEDS ORDERED: Sodium Chloride 0.9% 2.5 ML Syringe FLUSH PRN (19:25)
[2022-04-08] MEDS ORDERED: Sodium Chloride 0.9% 10 ML Syringe FLUSH PRN (19:25)
[2022-04-08] MEDS ORDERED: Sodium Chloride 0.9% 1,000 ML IV ONE (19:25)
[2022-04-08] MEDS ORDERED: Ketorolac 30 MG/ML SDV IVPUSH ONE (19:27)
[2022-04-08 19:46] LABS: CARBON DIOXIDE,CO2 26.2 mmol/L (21.0-32.0); POTASSIUM,K 3.5 mmol/L (3.5-5.1)
[2022-04-08] MEDS ORDERED: Alum Hydro/Mag Hydro/Simeth XS 15 ML, Lidocaine 2% 5 ML PO ONE ×2 (20:13)
[2022-04-08 20:43] LABS: CORONAVIRUS COVID-19 NAA NEGATIVE (NEGATIVE); INFLUENZA A NAA NEGATIVE (NEGATIVE); INFLUENZA B NAA NEGATIVE (NEGATIVE)
[2022-04-08 21:26] LABS: HEMOGLOBIN A1C 5.4 %
[2022-04-08] MEDS ORDERED: Orphenadrine 60 MG/2 ML Inj IM ONE (21:39)
[2022-04-08 21:53] VITALS: BP 125/70; PULSE 81
== END 2022-04-08 21:52 | disposition home or self-care (01) ==
LOC: MW.ED 18:34
DX: R07.2 Precordial pain (principal); I10 Essential (primary) hypertension; Z79.899 Other long term (current) drug therapy; Z79.82 Long term (current) use of aspirin; Z87.891 Personal history of nicotine dependence; Z20.822 Contact with and (suspected) exposure to COVID-19
CPT/HCPCS: 0240U; 36415; 71045; 80053; 83036; 83690; 84484; 85025; 85379; 85610; 96361; 96372; 96374; 99285; A9270; J1885; J2360; J3490; J7030